=== PATIENT | female | born 1945 | race Caucasian/White ===

== ENCOUNTER 2016-08-01 11:08 | Emergency (ER) | payer MEDICARE, OTHER ==
[~2016-08-01] VITALS: Ht 157.5 cm; Wt 61.0 kg
[~2016-08-01 11:08] MED LIST: ALBU6.7H INH; GLYB1TAB51 PO; LEVA500T PO; POTA20PA PO; PROM6.257 PO; SIMV5TAB32 PO; SYNT25TA PO; VICT18IN SQ; ZOFR4TAB3 SL
[2016-08-01 11:14] VITALS: BP 151/76; PULSE 79; RESP 18; TEMP 97.4; O2SAT 97
[2016-08-01] MEDS ORDERED: ZOCO10TA PO (11:34)
[2016-08-01] MEDS ORDERED: CANA1TAB PO (11:34)
[2016-08-01] MEDS ORDERED: MIRA25TA PO (11:34)
[2016-08-01] MEDS ORDERED: VICT18IN SQ (11:34)
[2016-08-01] MEDS ORDERED: OXYB5TAB10 PO (11:34)
[2016-08-01] MEDS ORDERED: LEVO75TA3 PO (11:34)
[2016-08-01] MEDS ORDERED: SODIUM CHLOR 0.9% 1000 ML INJ 1,000 ML IV SCH (11:50)
--- NOTE | 2016-08-01 11:52 | PD ---
HPI Chief Complaint: General Weakness Time Seen by Provider: 11:28 Travel History International Travel<30 days: No Contact w/Intl Traveler<30days: No Traveled to known affect area: No History of Present Illness HPI Patient 71-year-old female who recently started taking Ditropan as well as Mybetriq for overactive bladder states that she's been feeling dehydrated for the past week. Patient states her mouth is been very dry and drinking more. Patient is a type II diabetic and on him but, states his sugars actually been running okay though. She denies any dysuria denies any abdominal pain chest pain shortness of breath nausea vomiting or diarrhea. She has not been able to follow up with her primary care provider for these symptoms. PFSH Past Medical History Asthma: Yes High Cholesterol: Yes Diabetes: Yes Patient Takes Glucophage: No Diminished Hearing: Yes (COCLEAR IMPLANTS) GERD: Yes (IBS) Respiratory: Yes (ASTHMA) Tetanus Vaccination: < 5 Years ?: Not Menopausal: Yes Tubal Ligation: Yes Past Surgical History Ear Surgery: Yes Social History Alcohol Use: No Tobacco Use: No (quit approx 40 yrs ago smoked cigs) Substance Use: No Allergies-Medications (Allergen,Severity, Reaction): Coded Allergies: Cortisone (Verified Allergy, Intermediate, Swelling, 08/01/16) Sulfa (Verified Allergy, Intermediate, Swelling, 08/01/16) Keflex (Verified Allergy, Mild, RASH, 08/01/16) Penicillin (Verified Allergy, Mild, 08/01/16) Uncoded Allergies: NOVOCAINE (Allergy, Mild, 11/10/14) . Reported Meds & Prescriptions Reported Meds & Active Scripts Active Reported Victoza Inj (Liraglutide Inj) 18 Mg/3 Ml Pen 1.2 Mg SQ DAILY Zocor (Simvastatin) 10 Mg Tab 10 Mg PO DAILY Levothyroxine (Levothyroxine Sodium) 75 Mcg Tab 75 Mcg PO DAILY Ditropan (Oxybutynin Chloride) 5 Mg Tab 10 Mg PO DAILY Invokamet (Canagliflozin-Metformin) 50-500 Mg Tab 1 Tab PO BID Take with meals. Avoid ethanol. Myrbetriq (Mirabegron) 25 Mg Tab 25 Mg PO DAILY Review of Systems Except as stated in HPI: all other systems reviewed are Neg Physical Exam Narrative GENERAL: Well-developed well-nourished, comfortably reading a book in the stretcher in no apparent distress.. SKIN: Warm and dry. HEAD: Atraumatic. Normocephalic. EYES: Pupils equal and round. No scleral icterus. No injection or drainage. ENT: No nasal bleeding or discharge. Mucous membranes pink and dry. NECK: Trachea midline. No JVD. CARDIOVASCULAR: Regular rate and rhythm. No murmur appreciated. RESPIRATORY: No accessory muscle use. Clear to auscultation. Breath sounds equal bilaterally. GASTROINTESTINAL: Abdomen soft, non-tender, nondistended. Hepatic and splenic margins not palpable. MUSCULOSKELETAL: No obvious deformities. No clubbing. No cyanosis. No edema. NEUROLOGICAL: Awake and alert. No obvious cranial nerve deficits. Motor grossly within normal limits. Normal speech. PSYCHIATRIC: Appropriate mood and affect; insight and judgment normal. Data Data Last Documented VS Vital Signs Date Time Temp Pulse Resp B/P Pulse Ox O2 Delivery O2 Flow Rate FiO2 08/01/16 14:04 72 16 164/85 99 08/01/16 12:17 Room Air 08/01/16 11:14 97.4 Orders Basic Metabolic Panel (Bmp) (08/01/16 11:50) Complete Blood Count With Diff (08/01/16 11:50) Urinalysis - C+S If Indicated (08/01/16 11:50) Iv Access Insert/Monitor (08/01/16 11:50) Ecg Monitoring (08/01/16 11:50) Oximetry (08/01/16 11:50) Sodium Chlor 0.9% 1000 Ml Inj (Ns 1000 M (08/01/16 11:50) Sodium Chloride 0.9% Flush (Ns Flush) (08/01/16 12:00) Labs Laboratory Tests Test 08/01/16 12:00 White Blood Count 6.4 TH/MM3 Red Blood Count 4.91 MIL/MM3 Hemoglobin 13.2 GM/DL Hematocrit 38.8 % Mean Corpuscular Volume 79.0 FL Mean Corpuscular Hemoglobin 26.9 PG Mean Corpuscular Hemoglobin 34.1 % Concent Red Cell Distribution Width 13.0 % Platelet Count 186 TH/MM3 Mean Platelet Volume 7.0 FL Neutrophils (%) (Auto) 45.7 % Lymphocytes (%) (Auto) 31.0 % Monocytes (%) (Auto) 8.0 % Eosinophils (%) (Auto) 14.5 % Basophils (%) (Auto) 0.8 % Neutrophils # (Auto) 2.9 TH/MM3 Lymphocytes # (Auto) 2.0 TH/MM3 Monocytes # (Auto) 0.5 TH/MM3 Eosinophils # (Auto) 0.9 TH/MM3 Basophils # (Auto) 0.1 TH/MM3 CBC Comment DIFF FINAL Differential Comment Urine Collection Type CLEAN CATCH Urine Color YELLOW Urine Turbidity CLEAR Urine pH 5.5 Urine Specific [place] 1.012 Urine Protein NEG mg/dL Urine Glucose (UA) 1000 OR GREATER mg/dL Urine Ketones NEG mg/dL Urine Occult Blood SMALL Urine Nitrite NEG Urine Bilirubin NEG Urine Leukocyte Esterase NEG Urine RBC 0-3 /hpf Urine WBC 0-2 /hpf Urine Squamous Epithelial 0-5 /hpf Cells Microscopic Urinalysis Comment CULT NOT INDICATED Sodium Level 141 MEQ/L Potassium Level 3.9 MEQ/L Chloride Level 107 MEQ/L Carbon Dioxide Level 26.8 MEQ/L Anion Gap 7 MEQ/L Blood Urea Nitrogen 17 MG/DL Creatinine 1.30 MG/DL Estimat Glomerular Filtration 41 ML/MIN Rate Random Glucose 108 MG/DL Calcium Level 8.3 MG/DL [facility] Medical Decision Making Medical Screen Exam Complete: Yes Emergency Medical Condition: Yes Differential Diagnosis Dehydration, acute kidney injury, electrolyte imbalance. Narrative Course Patient was roomed in the emergency department, she appears well in no apparent distress. Mucous membranes are slightly on the fire truck driver's side. She is given a liter of normal saline and feeling much better. Creatinine is minimally elevated to 1.3 today her baseline appears to be 1.1. Discussed with her to hold her new medicines until she follows up with her primary care physician otherwise she is stable for discharge. Discussed return to ED criteria and push by mouth fluids at home. Diagnosis Primary Impression: Dehydration, mild Additional Impression: Dry mouth Disposition: DISCHARGE HOME Condition: Stable Adonis Bynum MD Aug 01, 2016 11:52
[2016-08-01] MEDS ORDERED: SODIUM CHLORIDE 0.9% FLUSH 5 ML FLUSH IVF PRN (12:00)
[2016-08-01 12:08] LABS: AUTOMATED NEUTROPHIL # 2.9 TH/MM3 (1.8-7.7); BASOPHIL # 0.1 TH/MM3 (0-0.2); BASOPHIL % 0.8 % (0.0-2.0); EOSINOPHIL # 0.9 TH/MM3 (0-0.4); EOSINOPHIL % 14.5 % (0.0-4.0); HEMATOCRIT 38.8 % (35.0-46.0); HEMO FLAGS DIFF FINAL; MEAN CORPUSCULAR HEMOGLOBIN 26.9 PG (27.0-34.0); MEAN CORPUSCULAR HGB CONC 34.1 % (32.0-36.0); NEUT % 45.7 % (16.0-70.0); PLATELET COUNT 186 TH/MM3 (150-450); RED BLOOD COUNT 4.91 MIL/MM3 (4.00-5.30); WHITE BLOOD COUNT 6.4 TH/MM3 (4.0-11.0)
[2016-08-01 12:14] LABS: BLOOD, URINE SMALL (NEG); KETONE, URINE NEG (NEG); NITRITE,URINE NEG (NEG); PH, URINE 5.5 (5.0-8.5)
[2016-08-01 12:15] LABS: GLUCOSE,URINE 1000 OR GREATER mg/dL (NEG); METHOD OF COLLECTION CLEAN CATCH; URINE COLOR YELLOW (YELLW/STRAW)
[2016-08-01 12:17] VITALS: RESP 16; O2SAT 97
[2016-08-01 12:17] LABS: POTASSIUM 3.9 MEQ/L (3.5-5.1)
[2016-08-01 12:18] LABS: COMMENT (UR) CULT NOT INDICATED; CULTURE IF INDICATED CULT NOT INDICATED; RBC, URINE 0-3 /hpf (0-3); SQUAMOUS EPITHELIAL CELL URINE 0-5 /hpf (0-5); WBC, URINE 0-2 /hpf (0-5)
[2016-08-01 12:19] LABS: BICARBONATE 26.8 MEQ/L (21.0-32.0)
[2016-08-01 14:04] VITALS: BP 164/85
== END 2016-08-01 14:19 | disposition home or self-care (01) ==
LOC: PHED 11:08
DX: E86.0 Dehydration (principal); R68.2 Dry mouth, unspecified; R82.99 Other abnormal findings in urine; E78.00 Pure hypercholesterolemia, unspecified; E11.9 Type 2 diabetes mellitus without complications; Z79.4 Long term (current) use of insulin
CPT/HCPCS: 80048; 81001; 85025; 96360; 96361; 99284; J7030

== ENCOUNTER 2017-10-10 11:17 | Emergency (ER) | payer MEDICARE, OTHER ==
[~2017-10-10] VITALS: Ht 154.9 cm; Wt 64.8 kg
[~2017-10-10 11:17] MED LIST changes: -ALBU6.7H INH; +CANA1TAB PO; -GLYB1TAB51 PO; -LEVA500T PO; +LEVO75TA3 PO; +MIRA25TA PO; +OXYB5TAB8 PO; -POTA20PA PO; -PROM6.257 PO; -SIMV5TAB32 PO; -SYNT25TA PO; +ZOCO10TA PO; -ZOFR4TAB3 SL
[2017-10-10 11:22] VITALS: BP 140/69; PULSE 96; RESP 16; TEMP 97.4; O2SAT 100
[2017-10-10] MEDS ORDERED: CHOL1TAB41 PO (11:42)
[2017-10-10] MEDS ORDERED: DULA10IN SQ (11:42)
[2017-10-10] MEDS ORDERED: ERYTOIN10 EACH EYE (12:25)
[2017-10-10] MEDS ORDERED: PATA0.2S EACH EYE (12:25)
--- NOTE | 2017-10-10 12:26 | PD ---
HPI Chief Complaint: Eye Problems/Injury Time Seen by Provider: 12:15 Travel History International Travel<30 days: No Contact w/Intl Traveler<30days: No Traveled to known affect area: No History of Present Illness HPI 72-year-old female here with bilateral eye irritation, redness, itching. Denies any visual changes. Denies any eye pain. She reports crusting and lashes in the morning. Has not attempted any [id number] medications. Symptom severity is moderate. No aggravating or alleviating factors. PFSH Past Medical History Hx Anticoagulant Therapy: No Asthma: Yes High Cholesterol: Yes Diabetes: Yes Patient Takes Glucophage: No Diminished Hearing: Yes (COCLEAR IMPLANTS) GERD: Yes (IBS) Respiratory: Yes (ASTHMA) Thyroid Disease: Yes (hypo) Tetanus Vaccination: > 5 Years Influenza Vaccination: No ?: Not Menopausal: Yes Tubal Ligation: Yes Past Surgical History Ear Surgery: Yes Social History Alcohol Use: No Tobacco Use: No (quit approx 40 yrs ago smoked cigs) Substance Use: No Allergies-Medications (Allergen,Severity, Reaction): Coded Allergies: Sulfa (Sulfonamide Antibiotics) (Unverified Allergy, Intermediate, Swelling, 10/10/17) cortisone (Unverified Allergy, Intermediate, Swelling, 10/10/17) cephalexin (Unverified Allergy, Mild, RASH, 10/10/17) penicillin G (Unverified Allergy, Mild, 10/10/17) Uncoded Allergies: NOVOCAINE (Allergy, Mild, 11/10/14) . Reported Meds & Prescriptions Reported Meds & Active Scripts Active Erythromycin Opth Oint 5 Mg/Gm Oint 1 Applic EACH EYE BID Pataday Opth 0.2% (Olopatadine HCl) 0.2 % Drops 1 Drop EACH EYE DAILY Reported Vitamin D3 (Cholecalciferol) 10,000 Unit Tab 10,000 Units PO Q7D Trulicity Inj (Dulaglutide Inj) 0.75 Mg/0.5 Ml Pen 0.75 Mg SQ Q7D Zocor (Simvastatin) 10 Mg Tab 10 Mg PO DAILY Levothyroxine (Levothyroxine Sodium) 75 Mcg Tab 75 Mcg PO DAILY Review of Systems Except as stated in HPI: all other systems reviewed are Neg General / Constitutional: No: Fever Eyes: No: Visual changes HENT: No: Headaches Cardiovascular: No: Chest Pain or Discomfort Respiratory: No: Shortness of Breath Gastrointestinal: No: Abdominal Pain Genitourinary: No: Dysuria Physical Exam Narrative GENERAL: Alert and well-appearing 72-year-old male SKIN: Warm and dry. No rash HEAD: Normocephalic. EYES: Both eyes mildly injected right greater than left. Pupils equal, round, reactive to light. EOMs intact. Visual concepcion intact. Cornea is clear. NECK: Supple CARDIOVASCULAR: Regular rate and rhythm RESPIRATORY: Breath sounds equal bilaterally. No accessory muscle use. GASTROINTESTINAL: Abdomen soft, non-tender, nondistended. MUSCULOSKELETAL: No cyanosis, or edema. Data Data Last Documented VS Vital Signs Date Time Temp Pulse Resp B/P (MAP) Pulse Ox O2 Delivery O2 Flow Rate FiO2 10/10/17 11:22 97.4 96 16 140/69 (92) 100 Orders Orders Erythromycin 0.5% Opth Oint (Ilotycin 0. (10/10/17 12:30) [place] Medical Decision Making Medical Screen Exam Complete: Yes Emergency Medical Condition: Yes Differential Diagnosis Allergic conjunctivitis, bacterial conjunctivitis, viral conjunctivitis Narrative Course 72-year-old female here with conjunctivitis. No visual disturbances. She is established with an hotel maintenance engineer. She will be treated for both allergic and bacterial conjunctivitis. Diagnosis Primary Impression: Conjunctivitis Qualified Codes: H10.9 - Unspecified conjunctivitis Referrals: Tubing Assembler Additional Instructions: Antibiotic ointment as directed follow up with your hotel maintenance engineer Return if new or worsening symptoms. Scripts Erythromycin Opth Oint (Erythromycin Opth Oint) 5 Mg/Gm Oint 1 APPLIC EACH EYE BID for Infection, #1 TUBE 0 Refills Prov: Lila Mi 10/10/17 Olopatadine Opth 0.2% (Pataday Opth 0.2%) 0.2 % Drops 1 DROP EACH EYE DAILY for Allergies, #1 BOTTLE 0 Refills Prov: Lila Mi 10/10/17 Disposition: 01 DISCHARGE HOME Condition: Stable Lila Mi Oct 10, 2017 12:26
[2017-10-10] MEDS ORDERED: ERYTHROMYCIN 0.5% OPTH OINT 3.5 GM TUBO EACH EYE ONE (12:30)
== END 2017-10-10 12:44 | disposition home or self-care (01) ==
LOC: PHEFT 11:17
DX: H10.9 Unspecified conjunctivitis (principal); J45.909 Unspecified asthma, uncomplicated; E78.00 Pure hypercholesterolemia, unspecified; E11.9 Type 2 diabetes mellitus without complications; Z87.19 Personal history of other diseases of the digestive system; Z87.891 Personal history of nicotine dependence; Z79.899 Other long term (current) drug therapy; Z88.2 Allergy status to sulfonamides; Z88.0 Allergy status to penicillin
CPT/HCPCS: 99283